=== PATIENT | female | born 1980 | race Caucasian/White ===

== ENCOUNTER 2024-12-19 23:11 | Emergency (ER) | payer OTHER ==
[2024-12-19 23:24] VITALS: TEMP 97.5; BMI 27.1
[2024-12-19 23:44] LABS: URINE APPEARANCE CLEAR; URINE BILIRUBIN NEGATIVE (NEGATIVE); URINE COLOR DK YELLOW; URINE GLUCOSE (UA) NEGATIVE (NEGATIVE); URINE KETONE NEGATIVE (NEGATIVE); URINE NITRITE POSITIVE (NEGATIVE); URINE PROTEIN NEGATIVE (NEGATIVE); URINE UROBILINOGEN 0.2 mg/dL (0.2-1.0)
[2024-12-19 23:45] LABS: URINE LEUK ESTERASE 3+ (NEGATIVE)
[2024-12-20 00:32] LABS: HCG,QUALITATIVE URINE Negative
[2024-12-20] MEDS ORDERED: ONDANSETRON *ODT* 4 MG TABLET ONE (00:53)
[2024-12-20] MEDS ORDERED: IBUPROFEN 400 MG TABLET (FP) PO ONE (00:54)
[2024-12-20] MEDS: IBUPROFEN 400 MG TABLET (FP) PO ONE (01:01)
[2024-12-20] MEDS: ONDANSETRON *ODT* 4 MG TABLET SL ONE (01:02)
[2024-12-20] MEDS ORDERED: IBUPROFEN 200 MG TABLET PO ONE (01:04)
[2024-12-20 01:46] VITALS: BP 107/71; PULSE 58; RESP 17
[2024-12-20] MEDS: CIPROFLOXACIN 500 MG TABLET (RESTRICTED TO ID) PO ONE (01:50)
== END 2024-12-20 01:51 | disposition home or self-care (01) ==
LOC: JER 23:11
DX: N39.0 Urinary tract infection, site not specified (principal); R30.0 Dysuria; R35.0 Frequency of micturition; R10.A2 Flank pain, left side
CPT/HCPCS: 81003; 84703; 87086; 99283-25; Q0162